=== PATIENT | female | born 1995 | race Caucasian/White ===

== ENCOUNTER 2020-02-21 09:15 | Outpatient (RCR) | payer BC, SELFPAY ==
[2019-12-28 16:30] VITALS: BP 108/55; PULSE 80
[2020-01-05 10:00] VITALS: BP 97/63; PULSE 99
[2020-01-12 15:52] VITALS: BP 107/64; PULSE 100
[2020-01-19 09:40] VITALS: BP 108/62; PULSE 96
[2020-01-27 09:06] VITALS: BP 103/65; PULSE 96
[2020-01-31 14:33] VITALS: BP 122/60; PULSE 102
[2020-02-15 12:00] VITALS: BP 115/77; PULSE 98
--- NOTE | ~2020-02-21 | US_ITS ---
US OB BPP wo non-stress DATE: 12/28/2019 16:35 INDICATION: Preeclampsia history TECHNIQUE: Real-time imaging and Doppler analysis COMPARISON: None FINDINGS: Live shaikh intrauterine gestation, fetus in longitudinal lie, vertex presentation. Feta l heart rate of 133 bpm. The placenta is anterior. Subjectively normal amount of amniotic fluid. BIOPHYSICAL PROFILE reported by product safety technician: breathin out of 2 movement: 2 out of 2 tone: 2 out of 2 Amniotic fluid pocket: 2 out of 2 Total score: 8 out of 8 IMPRESSION: Normal biophysical profile score of 8 out of 8 Reviewed, dictated and finalized at Location A. Reviewed, dictated and finalized at location A. OTECHNOLOGIST SUPERVISOR
--- NOTE | ~2020-02-21 | US_ITS ---
EXAMINATION: US OB BPP wo non-stress DATE: 01/12/2020 15:49 INDICATION: Prior preeclampsia. Third trimester . TECHNIQUE: Real-time pelvic ultrasound was performed. The interpreting radiologist was not present fo r the study. COMPARISON: None. FINDINGS: There is a single living fetus in vertex presentation. The placenta is anterior. heart rate is 134 beats per minute (bpm). Amniotic fluid volume is subjectively normal. Biophysical profile performed by the technologist: breathing (30 sec sustained breathing in 30 minutes): 2 out of 2 movement (3 gross body movements in 30 minutes): 2 out of 2 tone (one episode of nkxxgah-tobrkhxqx-aggxyqr limb movement): 2 out of 2 Amniotic fluid pocket (2 cm): 2 out of 2 Total score: 8 out of 8 IMPRESSION: 1. Single living fetus in vertex presentation with heart rate of 134 bpm. 2. Biophysical profile 8 out of 8. Reviewed, dictated and finalized at location . GNA MAKER
--- NOTE | ~2020-02-21 | US_ITS ---
EXAMINATION: US OB BPP wo non-stress DATE: 01/19/2020 09:36 INDICATION: Preeclampsia. Third trimester. TECHNIQUE: Real-time pelvic ultrasound was performed. COMPARISON: Ultrasound 01/12/2020 FINDINGS: There is a single living fetus in vertex presentation. The placenta is anterior. heart rate is 124 beats per minute (bpm). Biophysical profile performed by the technologist: breathing (30 sec sustained breathing in 30 minutes): 2 out of 2 movement (3 gross body movements in 30 minutes): 2 out of 2 tone (one episode of xvkbyjj-iuiwhounj-zsyigjo limb movement): 2 out of 2 Amniotic fluid pocket (2 cm): 2 out of 2 Total score: 8 out of 8 IMPRESSION: 1. Single living fetus in vertex presentation. 2. Biophysical profile 8 out of 8. Reviewed, dictated and finalized at location A. K SPOTTER
--- NOTE | ~2020-02-21 | US_ITS ---
US OB BPP wo non-stress DATE: 01/05/2020 09:37 INDICATION: History of preeclampsia TECHNIQUE: Real-time imaging and Doppler analysis COMPARISON: 12/28/2019 obstetrical ultrasound with biophysical profile FINDINGS: Live shaikh intrauterine gestation in longitudinal lie, vertex presentation with h eart rate of 127 bpm. Anterior placenta. Subjectively normal amount of adnexal fluid with one pocket measuring up to 2.9 cm depth. BIOPHYSICAL PROFILE reported by all terrain vehicle technician: breathin out of 2 movement: 2 out of 2 tone: 2 out of 2 Amniotic fluid pocket: 2 out of 2 Total score: 8 out of 8 IMPRESSION: Normal biophysical profile score of 8 out of 8 Reviewed, dictated and finalized at Location A. Reviewed, dictated and finalized at location B. FING MACHINE OPERATOR
[2020-02-21 09:49] VITALS: BP 117/66; PULSE 98
== END 2020-02-25 08:02 | disposition home or self-care (01) ==
LOC: ANHOBOP 09:15
PROVIDERS: PCP Family Medicine; Visit Provider Obstetrics & Gynecology
DX: O09.293 Supervision of pregnancy with other poor reproductive or obstetric history, third trimester (principal); Z87.59 Personal history of other complications of pregnancy, childbirth and the puerperium; Z3A.30 30 weeks gestation of pregnancy; Z3A.31 31 weeks gestation of pregnancy; Z3A.32 32 weeks gestation of pregnancy; Z3A.33 33 weeks gestation of pregnancy; Z3A.35 35 weeks gestation of pregnancy; Z3A.37 37 weeks gestation of pregnancy; Z3A.38 38 weeks gestation of pregnancy
CPT/HCPCS: 59025; 76819

== ENCOUNTER 2020-02-24 | Inpatient (IN) | payer BC, SELFPAY ==
[2020-02-24] VITALS (122 sets, daily range): BP systolic 89–132; BP diastolic 40–113; PULSE 70–192; RESP 16; TEMP 36.2–37.2; O2SAT 96–100; BMI 36.7
--- OUTSIDE RECORDS SUMMARY | 2020-02-24 00:05 | XMS_ITS | Encounter Summary ---
:1995 Author Care Team Providers Name Role Phone Evita Savage MD Primary Care Provider [phone] Reason for Visit return OB visit Assessment and Plan 1. Routine care ? streptococcus group B, cul ture, unspecified specimen Discussion Note: None recorded.Patient educational handouts: No information available. Plan of Care Reminders Provider Appointments None recorded. ? ? Lab Streptococcus [place] [facility] Group B, Culture, 02/03/2020 [facility] (Lab) Unspecified Specimen Referral None recorded. ? ? Procedures None recorded. ? ? Surgeries None recorded. ? ? Imaging None recorded. ? ? Medications Name Start Date ? ? aspirin 81 mg tablet,delayed release ? Take 1 tablet every day by oral route. Boostrix Tdap 2.5 Lf unit-8 mcg-5 Lf/0.5 mL intramuscu lar syringe ? ADMINISTER 0.5ML IN THE MUSCLE DIRECTED Classic 28 mg iron-800 mcg tablet ? TAKE 1 TABLET BY MOUTH ONCE DAILY Flucelvax Quad [id number] (PF) 60 mcg (15 mcg x 4)/0.5 mL IM syringe ? ADMINISTER 0.5ML IN THE MUSCLE DIRECTED 28 mg iron-800 mcg tablet ? Take 1 tablet by oral route. Vitamin 27 mg iron-0.8 mg tablet ?
--- OUTSIDE RECORDS SUMMARY | 2020-02-24 00:05 | XMS_ITS | Encounter Summary ---
:1995 Author Care Team Providers Name Role Phone Evita Savage MD Primary Care Provider [phone] Reason for Visit return OB visit Assessment and Plan 1. Routine care Discussion Note: None recorded.Patient educational handouts: No information available. Plan of Care Reminders Provider Appointments None ? ? recorded. Lab None ? ? recorded. Referral None ? ? recorded. Procedures None ? ? recorded. Surgeries None ? ? recorded. Imaging None ? ? recorded. Medications Name Start Date ? ? aspirin 81 mg tablet,delayed release ? Take 1 tablet every day by oral route. Boostrix Tdap 2.5 Lf unit-8 mcg-5 Lf/0.5 mL intramuscu lar syringe ? ADMINISTER 0.5ML IN THE MUSCLE DIRECTED Classic 28 mg iron-800 mcg tablet ? TAKE 1 TABLET BY MOUTH ONCE DAILY Flucelvax Quad (PF) 60 mcg (15 mcg x 4)/0.5 mL IM syringe ? ADMINISTER 0.5ML IN THE MUSCLE DIRECTED 28 mg iron-800 mcg tablet ? Take 1 tablet by oral route. Vitamin 27 mg iron-0.8 mg tablet ? Medications Administered None recorded. Vitals Height Weight Blood Pressure 5 ft 3 in 213 lbs 117/62 mm[Hg] Results Lab Results
--- OUTSIDE RECORDS SUMMARY | 2020-02-24 00:05 | XMS_ITS | Encounter Summary ---
:1995 Author Care Team Providers Name Role Phone Evita Savage MD Primary Care Provider [phone] Reason for Visit return OB visit Assessment and Plan 1. Routine care ? cervical ripening and pablito ction of labor (SURG) Discussion Note: None recorded.Patient educational handouts: No information available. Plan of Care Reminders Provider Appointments None ? ? recorded. Lab None ? ? recorded. Referral None ? ? recorded. Procedures None ? ? recorded. Surgeries Cervical [place] [facility] Ripening and Induction 02/16/2020 [facility] (One Call of Labor (SURG) Scheduling) Imaging None ? ? recorded. Medications Name Start Date ? ? aspirin 81 mg tablet,delayed release ? Take 1 tablet every day by oral route. Boostrix Tdap 2.5 Lf unit-8 mcg-5 Lf/0.5 mL intramuscu lar syringe ? ADMINISTER 0.5ML IN THE MUSCLE DIRECTED Classic 28 mg iron-800 mcg tablet ? TAKE 1 TABLET BY MOUTH ONCE DAILY Flucelvax Quad [id number] (PF) 60 mcg (15 mcg x 4)/0.5 mL IM syringe ? ADMINISTER 0.5ML IN THE MUSCLE DIRECTED 28 mg iron-800 mcg tablet ? Take 1 tablet by oral route. Vitamin 27 mg iron-0.8 mg tablet ? Medications Administered None recorded. Vitals Height Weight
--- OUTSIDE RECORDS SUMMARY | 2020-02-24 00:05 | XMS_ITS ---
:1995 Author Care Team Providers Name Role Phone MARYANNE DUMONT MD Primary Care Provider [phone] Allergies Code Code System Name Reaction Severity Status Onset NKDA ? Medications Name Status Start Date Stop Date ? ? aspirin 81 mg tablet,delayed release Active ? Not available Take 1 tablet every day by oral route. Boostrix Tdap 2.5 Lf unit-8 mcg-5 Lf/0.5 mL intramuscular syring e Active ? Not available ADMINISTER 0.5ML IN THE MUSCLE DIRECTED cephalexin 500 mg capsule Completed ? 2019 Classic 28 mg iron-800 mcg Active ? Not available tablet erythromycin 5 mg/gram (0.5 %) eye Completed ? 10/18/2019 ointment famotidine 20 mg tablet Completed ? 09/08/19 20 ferrous sulfate 325 mg (65 mg iron) tablet Completed ? 09/08/2019 TAKE 1 TABLET BY MOUTH TWICE DAILY Flucelvax Quad (PF) 60 mcg (15 mcg x 4)/0.5 mL IM syri nge Active ? Not available ADMINISTER 0.5ML IN THE MUSCLE DIRECTED folic acid 1 mg tablet Completed ? 0 ibuprofen 800 mg tablet Completed ? 09/08/19 20 M-Ana Cristina Plus 27 mg iron-1 mg tablet Completed ? 09/08/2019 metoclopramide 5 mg tablet Completed ? 09/07 TAKE 1 TABLET BY MOUTH EVERY 6 TO 8 HOURS NEEDED nifedipine ER 30 mg tablet,extended Completed ? 09/08/2019 release nitrofurantoin Completed ? 09/08/2019 monohydrate/macrocrystals 100 mg capsule
--- OUTSIDE RECORDS SUMMARY | 2020-02-24 00:05 | XMS_ITS | Encounter Summary ---
:1995 Author Care Team Providers Name Role Phone Evita Savage MD Primary Care Provider [phone] Reason for Visit return OB visit Assessment [...] Weight Blood Pressure 5 ft 3 in 210 lbs 119/77 mm[Hg] Results Lab Results
--- OUTSIDE RECORDS SUMMARY | 2020-02-24 00:05 | XMS_ITS ---
:1995 Author Care Team Providers Name Role Phone MARYANNE DUMONT MD Primary Care Provider [phone] Allergies Code Code System Name Reaction Severity Status Onset Tuna Oil ? ? Active ? NKDA ? Notes: Some allergies listed in Document: #[id number] could not be added to this patient's chart. Please review this document and add these allergies to the patient's chart manually as needed. Medications Name Status Start Date Stop Date ? ? amoxicillin 875 mg tablet Completed ? 2018 Take 1 tablet every 12 hours by oral route. Aspirin Low Dose 81 mg tablet,delayed release Completed ? 12/10/2018 Take 1 tablet every day by oral route. Calcium 600 with Vitamin D3 600 mg (1,500 mg)-400 unit capsule C ompleted ? 10/13/2018 Take 1 capsule twice a day by oral route. cephalexin 500 mg capsule Active ? Not av ailable cyanocobalamin (vit B-12) 1,000 mcg/mL injection solution Active ? Not available Inject 1 mL every month by subcutaneous route. famotidine 20 mg tablet Active ? Not avai lable folic acid 1 mg tablet Active ? Not avail able ibuprofen 800 mg tablet Active ? Not avai lable M-Ana Cristina Plus 27 mg iron-1 mg tablet Active ? Not available meclizine 25 mg tablet Completed ? 9 Take 1 tablet twice a day by oral route as needed. nifedipine ER 30 mg tablet,extended Active ? Not available release nitrofurantoin Completed ?
--- NOTE | 2020-02-24 00:21 | LDADM ---
This patient, Gege Houston, was admitted to Labor/Delivery/Recovery 107 on 02/24/20 at 00:00. Plans for labor, pain management and were discussed with patient. Patient/family oriented to hospital policies and general routines including ID bracelet, bed and alarms, visiting hours, pain management, procedures, bathroom and other care routines, personal items, smoking policy, room service/diet and guest tray routines, security routines, and visiting hours. Patient/Family are encouraged to report perceived risks to care and to ask questions if they do not understand what they are told or what they should do. See OBIX for further documentation.
[2020-02-24] MEDS: DINOPROSTONE 10 MG VAG INSERT VAGINAL (00:58)
[2020-02-24 01:04] LABS: Basophils Percent Auto 0.2 % (0.2-1.2); Eosinophils Absolute Auto 0.1 K/mm3 (0-0.3); Hematocrit 36.4 % (37.0-47.0); Hemoglobin 12.3 g/dL (12.0-15.0); Immature Granulocyte Percent A 0.8 % (0-0.5); Lymphocytes Absolute Auto 3.24 K/mm3 (0.9-3.2); Lymphocytes Percent Auto 24.6 % (18.3-44.2); Mean Corpuscular HGB Conc 33.8 g/dl (32-36); Mean Corpuscular Hemoglobin 30.3 pg (26-34); Mean Corpuscular Volume 89.7 fl (80-100); Mean Platelet Volume 9.9 fl (7.4-10.4); Monocytes Absolute Auto 0.8 K/mm3 (0.1-0.6); Neutrophils Absolute Auto 8.9 K/mm3 (1.3-6.7); Neutrophils Percent Auto 67.4 % (45.5-73.1); Platelet Count Result 289 k/mm3 (150-375); Red Blood Count 4.06 M/mm3 (4.2-5.4); Red Cell Distribution Width 12.9 % (11.5-14.5); White Blood Count 13.2 K/mm3 (4.5-10.0)
[2020-02-24 06:55] LABS: Rapid Plasma Reagin Non-Reactive (NonReactive)
[2020-02-24] MEDS: LACTATED RINGERS 1,000 ML 999 ML IV CONT ×2 (11:03→11:50)
--- NOTE | 2020-02-24 11:52 | P.PNAN_ITS ---
Anes - Eval Pre Procedure Procedure: Labor Epidural Date/Time: 02/24/20 11:52 Pre Op Diagnosis: Induction of Labor Patient Data Age: 25 Gender: F Height: 1.6 m Weight: 94 kg Last Vital Signs Temp 36.4 C 02/24/20 11:00 Pulse 97 02/24/20 10:11 BP 119/78 02/24/20 10:11 Allergies Allergy/AdvReac Type Severity Reaction Status Date / Time No Known Allergies Allergy Verified 01/12/20 15:02 Home Medications Medication Instructions Recorded Confirmed Type PNV cmb#95-ferrous fumarate-FA 1 tablet PO DAILY 01/12/20 02/24/20 History [] aspirin 81 mg PO DAILY 01/12/20 02/24/20 History Laboratory Tests 02/24/20 02/24/20 02/24/20 00:54 00:54 00:54 WBC 13.2 K/mm3 H K/mm3 (4.5-10.0) RBC 4.06 M/mm3 L M/mm3 (4.2-5.4) Hgb 12.3 g/dL g/dL (12.0-15.0) Hct 36.4 % L % (37.0-47.0) MCV 89.7 fl fl (80-100) MCH 30.3 pg pg (26-34) MCHC 33.8 g/dl g/dl (32-36) RDW 12.9 % % (11.5-14.5) Plt Count 289 k/mm3 k/mm3 (150-375) MPV 9.9 fl fl (7.4-10.4) Immature Gran % (Auto) 0.8 % H % (0-0.5) Neut % (Auto) 67.4 % % (45.5-73.1) Lymph % (Auto) 24.6 % % (18.3-44.2) [place] % (Auto) 6.0 % % (2.6-8.5) Eos % (Auto) 1.0 % % (0-4.4) Baso % (Auto) 0.2 % % (0.2-1.2) Lymph # (Auto) 3.24 K/mm3 H K/mm3 (0.9-3.2) [place] # (Auto) 0.8 K/mm3 H K/mm3 (0.1-0.6) Eos # (Auto) 0.1 K/mm3 K/mm3 (0-0.3) Baso # (Auto) 0.0 K/mm3 K/mm3 (0.0-0.1) Abs Immat Gran (auto) 0.10 K/mm3 H K/mm3 (0.00-0.031) Absolute Neuts (auto) 8.9 K/mm3 H K/mm3 (1.3-6.7) Absolute Nucleated RBC 0.0 K/mm3 K/mm3 (0.0-0.012) Nucleated RBC % 0.0 % % (0.0-0.2) RPR Non-reactive (NonReactive) Blood Type O Positive Antibody Screen Negative Patient hx anesthesia problems: none Family hx anesthesia problems: none [facility] Family History Family History (Updated 01/31/20 @ 13:45 by Yolande Espinal RN) Father Diabetes mellitus Mother Hypertension Social History Social History Smoking status: Never smoker Second hand tobacco smoke exposure: No Substance use: never Gender identity (if verbalized by the patient): Female Spiritual care concerns: No Exam Day of Procedure 02/24/20 11:52 Patient weight: obese Heart: regular rate and rhythm Lungs: normal air movement Airway: Mallampati scale class III Neurological: alert and oriented
[2020-02-24] MEDS: OXYTOCIN 30 UNITS/NS 500 ML 30 UNITS/500 ML BAG IV CONT (12:25)
[2020-02-24] MEDS: LACTATED RINGERS 1,000 ML 125 ML IV CONT (13:00)
[2020-02-24] MEDS: ONDANSETRON INJ 4 MG/2 ML VIAL IV PUSH (13:02)
--- NOTE | 2020-02-24 14:00 | PM.IMHP ---
H&P: HPI History of Present Illness Date/Time: 02/24/20 14:00 Chief Complaint: elective induction of labor Narrative: Gege Houston is a 25 year old female a at 39 weeks and 0 days gestation presenting for elective induction of labor at term. She states that she is doing well she has an epidural in place and she is comfortable from a pain standpoint. She does report some mild nausea. Review of Systems Constitutional: Constitutional: Reports no additional constitutional complaints Eyes: Eyes: Reports no additional eye complaints ENT: Reports system reviewed and no additional complaints, except as documented Cardiovascular: Cardiovascular: Reports no additional cardiovascular complaints Respiratory: Respiratory: Reports no additional respiratory complaints Gastrointestinal: Gastrointestinal: Reports no additional gastrointestinal complaints Genitourinary: Genitourinary: Reports no additional female genitourinary complaints Musculoskeletal: Musculoskeletal: Reports no additional musculoskeletal complaints Integumentary/Breasts: Skin/Breast: Reports system reviewed and no additional complaints, except as docu Neurologic: Reports system reviewed and no additional complaints, except as documented Psychiatric: Psychiatric: Reports no additional psychiatric complaints Endocrine: Endocrine: Reports no additional endocrine complaints Hematologic/Lymphatic: Hematologic/Lymphatic: Reports no additional hematologic/lymphatic complaints Allergic/Immunologic: Allergic/Immunologic: Reports no additional allergic/immunologic complaints PMF Surgical History Surgical History (Updated 02/24/20 @ 14:02 by Joel Pena DO) History of appendectomy Family History Family History Father Diabetes mellitus Mother Hypertension Social History Social History Smoking status: Never smoker Second hand tobacco smoke exposure: No Substance use: never Gender identity (if verbalized by the patient): Female Spiritual care concerns: No Meds Home Medications and Allergies Home Medications Medication Instructions Recorded Confirmed Type PNV cmb#95-ferrous fumarate-FA 1 tablet PO DAILY 01/12/20 02/24/20 History [] aspirin 81 mg PO DAILY 01/12/20 02/24/20 History Allergies Allergy/AdvReac Type Severity Reaction Status Date / Time No Known Allergies Allergy Verified 01/12/20 15:02 Vital Signs Vital Signs - 24 hr 02/24/20 00:20 02/24/20 00:30 02/24/20 00:45 Temperature Pulse Rate 92 95 84 Blood Pressure 118/70 117/73 123/71 Pulse Oximetry 02/24/20 01:00 02/24/20 01:01 02/24/20 01:15 Temperature 36.3 C L Pulse Rate 89 91 Blood Pressure 112/73 111/60 Pulse Oximetry 02/24/20 01:30 02/24/20 01:45 02/24/20 02:00 Temperature Pulse Rate 90 90 93 Blood Pressure 117/68 114/66 110/62 Pulse Oximetry 02/24/20 02:15 02/24/20 02:30 02/24/20 02:45 Temperature Pulse Rate 88 90 91 Blood Pressure 113/64 115/66 107/67 Pulse Oximetry 02/24/20 03:00 02/24/20 05:00 02/24/20 05:10 Temperature 36.6 C Pulse Rate 88 107 H Blood Pressure 115/65 125/71 Pulse Oximetry 02/24/20 05:15 02/24/20 05:30 02/24/20 05:45 Temperature Pulse Rate 105 H 97 100 Blood Pressure 115/73 117/64 113/76 Pulse Oximetry 02/24/20 06:00 02/24/20 06:16 02/24/20 06:26 Temperature 36.2 C L Pulse Rate 110 H 114 H Blood Pressure 114/71 94/46 L Pulse Oximetry 02/24/20 10:11 02/24/20 10:42 02/24/20 11:00 Temperature 36.7 C 36.4 C Pulse Rate 97 Blood Pressure 119/78 Pulse Oximetry 02/24/20 12:01 02/24/20 12:04 02/24/20 12:06 Temperature Pulse Rate 92 93 Blood Pressure 127/65 126/70 Pulse Oximetry 100 100 02/24/20 12:10 02/24/20 12:11 02/24/20 12:15 Temperature Pulse Rate 92 87 Blood Pressure 121/70 112/65 Pulse O
--- NOTE | 2020-02-24 14:05 | WPDHPUPDATE1 ---
History and Physical Update Update Date/Time: 02/24/20 14:05 History and Physical has been reviewed, including an updated exam of the patient. There are NO changes in the patient's condition. Risks, benefits, and alternatives have been discussed and questions answered. Patient agrees to proceed with procedure.
[2020-02-24] MEDS: ACETAMINOPHEN 500 MG TABLET 1000 MG PO (14:38)
--- NOTE | 2020-02-24 16:55 | PM.OBPRVD ---
OB - Delivery Note Procedure Delivery date: 02/24/20 Procedure: Normal spontaneous vaginal delivery Intrapartal events: None Induction method: per pitocin protocol and per cervidil protocol Delivery monitor: external FHT and internal uterine Route of delivery: Laceration Description: None Specimen: No Quantitative Blood Loss (ml): 100 Anesthesia type: Epidural Narrative: Once she was noted to be complete and ready to push, the labor bed was broken down and legs were placed in stirrups for support. With contractions and maternal efforts, the presented in JOVANNI position. The head was delivered. Checked for nuchal cord, no nuchal cord noted. Gentle downward traction was applied and the anterior shoulder delivered without issues, followed by the posterior shoulder and rest of the body. was vigorous and crying, so delayed cord clamping of approximately 1 minute was performed. The cord was clamped and cut. Cord gasses collected. Placenta was delivered spontaneously with gentle cord traction. IV oxytocin administered and fundal massage applied. Exam was performed to identify any lacerations. No lacerations noted. Good hemostasis noted. Patient tolerated the procedure well. All instrument and sponge counts were correct at the end of the procedure. Baby Date of : 02/24/20 Time of : 16:40 Weeks of gestation at delivery: 39 gender: Male Weight (pounds): 8 Weight (ounces): 4 presentation: vertex position: Right Occiput Anterior Placenta delivery description: Spontaneous cord vessel description: 3 Vessels, Clamped/Cut and Delayed Cord Clamping score one minute: 9 score five minutes: 9
[2020-02-24] MEDS: OXYTOCIN 30 UNITS/NS 500 ML 30 UNITS/500 ML BAG 125 UNITS IV CONT (17:17)
[2020-02-24] MEDS: IBUPROFEN 600 MG TABLET PO (18:59)
[2020-02-24] MEDS: BENZOCAINE 20% AER SPR (*SP) 56 GM CAN 1 SPRAY TOPICAL (19:00)
[2020-02-24] MEDS: WITCH HAZEL 40 PADS 1 PAD TOPICAL (19:00)
[2020-02-24] MEDS: HYDROcodone/acetaminophen (*CRX) 5-325 MG TABLET 1 TAB PO (22:28)
[2020-02-24] MEDS: KETOROLAC 30 MG/ML VIAL (*BKC) IV PUSH (22:28)
[2020-02-25] MEDS: IBUPROFEN 600 MG TABLET PO ×3 (04:56→19:12)
[2020-02-25] MEDS: HYDROcodone/acetaminophen (*CRX) 5-325 MG TABLET 1 TAB PO ×4 (04:56→19:12)
[2020-02-25 05:31] LABS: Hematocrit 33.9 % (37.0-47.0); Hemoglobin 11.3 g/dL (12.0-15.0)
[2020-02-25 07:50] VITALS: BP 120/60; PULSE 78; RESP 16; TEMP 36.2; O2SAT 99
--- NOTE | 2020-02-25 09:00 | WPDANLDPN2 ---
Anes-Prog Note L&D Date/Time: 02/25/20 09:00 Comfortable throughout: labor and delivery Neuraxial method: epidural Epidural/Spinal procedure site: clean & non-tender Neuro status: Neuro function grossly intact. Cardiovascular status: normal Respiratory status: normal Airway patency: baseline Mental status: baseline Post-Op hydration status: normal Vital Signs: Last Vital Signs Temp 36.3 C L 02/24/20 20:00 Pulse 89 02/24/20 20:00 Resp 16 02/24/20 20:00 BP 117/70 02/24/20 20:00 Pulse Ox 96 02/24/20 20:00 Pain score (VAS): 0 I/O: Intake & Output 02/24/20 02/25/20 02/25/20 23:59 07:59 15:59 Intake Total 1000 Balance 1000 Post-procedural complaints: none Patient feedback: Patient satisfied with anesthetic care.
--- NOTE | 2020-02-25 09:18 | P.PNOB_ITS ---
OB - PN: Subj Subjective Date/time seen: 02/25/20 09:18 Interval history: s/p on 02/23. Patient states she is doing well. Had pain last night but is now controlled with pain medications. Ambulating, voiding freely. No complaints. Patient comments: no complaints and pain well controlled [place] feeding status: exclusively breast feeding OB - PN: Obj Data Labs CBC & Chem 7: 02/25/20 04:52 Labs: Laboratory Results - last 24 hr 02/25/20 04:52 Hgb 11.3 L Hct 33.9 L OB - PN A/P Assessment and Plan (1) (normal spontaneous vaginal delivery): Code(s): O80 - Encounter for full-term uncomplicated delivery Status: Acute Assessment and Plan: Routine care Pain management Ambulate Time Spent With Patient Time: Total time spent is greater than 50% in coordination of care (as documented) at patient's floor/unit and/or counseling patient: Exam Const: General: cooperative, healthy appearing, comfortable, no acute distress and well developed HENMT: Head: normocephalic and atraumatic Resp: Effort & Inspection: normal respiratory effort, able to speak in complete sentences and normal respiratory pattern GI: GI Palp: No abdominal tenderness and Yes Soft to palpation Neuro: General: oriented to person, oriented to place and oriented to time Psych: Appearance: grossly normal Mental Status: mental status grossly normal Speech and movement: Normal speech and movement present Affect: normal affect Attitude: cooperative Thought process: Normal thought process present Thought content: Yes Normal thought content present Ins ight: Good insight present (Psych) Judgement: Good judgement present (Psych)
--- NOTE | 2020-02-25 09:22 | PM.OBDSVD ---
DS: Admitting Diagnosis Admitting Diagnosis Admitting Diagnosis: Elective induction of labor DS: Discharge Diagnosis Discharge Diagnosis (1) (normal spontaneous vaginal delivery): Code(s): O80 - Encounter for full-term uncomplicated delivery Status: Acute Assessment and Plan: Routine care Pain management Ambulate OB - DS: Summary OB Procedures : None OB Procedures Intrapartum: Spontaneous Vag Delivery OB Procedures: : None Time Spent with Patient Time attestation: Total time spent providing and/or coordinating discharge services: Exam Const: General: cooperative, healthy appearing, comfortable, no acute distress and well developed Orientation/consciousness: oriented to person, oriented to place and oriented to time HENMT: Head: normocephalic and atraumatic Resp: Effort & Inspection: normal respiratory effort, able to speak in complete sentences, normal respiratory pattern and not labored Cardio: Rate: regular rate GI: Other: Gravid : Manual OB Exam: dilated 5 cm, effaced 75% and station -2 Amniotic Fluid: clear Neuro: General: oriented to person, oriented to place and oriented to time Psych: Appearance: grossly normal Mental Status: mental status grossly normal Speech and movement: Normal speech and movement present Affect: normal affect Attitude: cooperative Thought process: Normal thought process present Insight: Good insight present (Psych) Judgement: Good judgement present (Psych) DS: Data Data Completed and Pending Labs on day of discharge: Labs from last 24 hours 02/25/20 04:52 Hgb 11.3 L Hct 33.9 L Discharge Plan Discharge Attending physician on discharge: Joel Pena Discharging Clinician: Joel Pena Patient Disposition: Home, Self-Care Activity: may shower, no straining and pelvic rest Diet: regular Patient Instructions: Antibiotic Form Stand Alone Forms: General Discharge Information Follow-up/Referrals: Joel Pena DO [Physician] - Discharge Medications: New docusate sodium 100 mg Capsule 100 mg PO BID PRN (Reason: Constipation) Qty: 60 RF: 0 ibuprofen 600 mg Tablet 600 mg PO Q6H PRN (Reason: Cramping) Qty: 90 RF: 0 Continued PNV cmb#95-ferrous fumarate-FA [] 28 mg iron- 800 mcg Tablet 1 tablet PO DAILY RF: 0 Discontinued aspirin 81 mg Tablet 81 mg PO DAILY RF: 0 Date of admission: 02/24/20 00:00 Primary Care Provider: Hussein,Evita Busby Admitting Provider: Joel Pena Attending physician on admission: Joel Pena Condition: Stable
[2020-02-25] MEDS: MULTIVIT/MIN/PREN/FOL AC/IRON TABLET 1 TAB PO (09:49)
--- NOTE | 2020-02-25 15:17 | PC.NURSE ---
2663 note: Nurse visited with mother who states she is choosing to only pump and bottle feed infant. Nurse reviewed importance of regular pumping at each feeding, always giving pumped breast milk that is available first, then additional formula as baby wants. Reviewed care of breasts through milk coming in and referred to breast feeding section in Mother Baby Guide for home reference, including LC contact information. Mother had no questions for nurse.
[2020-02-25] MEDS: WITCH HAZEL 40 PADS 1 PAD TOPICAL (19:12)
[2020-02-25] MEDS: BENZOCAINE 20% AER SPR (*SP) 56 GM CAN 1 SPRAY TOPICAL (19:12)
== END 2020-02-25 19:35 | disposition home or self-care (01) | DRG 560 ==
LOC: ANHLDR 00:03 → ANHOB2 21:26
PROVIDERS: Admitting Provider Obstetrics & Gynecology; PCP Family Medicine; Visit Provider Obstetrics & Gynecology
DX: O80 Encounter for full-term uncomplicated delivery (principal); Z3A.39 39 weeks gestation of pregnancy; Z37.0 Single live birth
CPT/HCPCS: 36415; 85014; 85018; 85025; 86592; 86850; 86900; 86901; A9270; J1885; J2405; J2590; J2795; J7120